=== PATIENT | female | born 1985 | race Two or more races ===

== ENCOUNTER 2018-10-25 20:07 | Emergency (ER) | payer OTHER ==
[~2018-10-25] VITALS: Ht 157.5 cm; Wt 81.6 kg
--- NOTE | 2018-10-25 20:28 | NUR ---
CALLED PT NAME IN WR. NO ONE RESPONDED. WILL FOLLOW UP.
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
[2018-10-25] MEDS ORDERED: IBUPROFEN 600 MG TABLET PO ONE ×2 (20:55→21:00)
--- NOTE | 2018-10-25 21:07 | NUR ---
CERVICAL SPINE XR DONE WAITING FOR RESULT PAIN MEDICINE MOTRIN GIVEN
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
[2018-10-25 22:05] VITALS: BP 140/85
== END 2018-10-25 22:06 | disposition home or self-care (01) ==
LOC: ER 20:11
DX: S13.8XXA Sprain of joints and ligaments of other parts of neck, initial encounter (principal); Z90.49 Acquired absence of other specified parts of digestive tract; V49.49XA Driver injured in collision with other motor vehicles in traffic accident, initial encounter; Y93.89 Activity, other specified; Y92.410 Unspecified street and highway as the place of occurrence of the external cause; Y99.8 Other external cause status
CPT/HCPCS: 72040; 99283; A4606; Z7610